=== PATIENT | female | born 1965 ===

== ENCOUNTER 2020-08-08 12:30 | Inpatient (IN) | payer OTHER ==
[~2020-08-08] VITALS: Ht 172.7 cm; Wt 78.9 kg
[2020-08-08] MEDS ORDERED: MORPHINE SULFAT30 MG PO (14:00)
[2020-08-08] MEDS ORDERED: PHENERGAN25 MG PO (14:00)
[2020-08-08] MEDS ORDERED: CELEBREX200MG PO (14:01)
[2020-08-08] MEDS ORDERED: ADVIL200 M1 PO (14:01)
[2020-08-08] MEDS ORDERED: GABAPENTIN400 MG PO (14:01)
[2020-08-08] MEDS ORDERED: ATARAX10 MG PO (14:02)
[2020-08-08] MEDS ORDERED: CLONAZEPAM2 M1 PO (14:02)
[2020-08-08] MEDS ORDERED: LORAZEPAM2 MG PO (14:02)
[2020-08-13] MEDS ORDERED: MEDROLPACK PO (09:55)
[2020-08-13] MEDS ORDERED: AMOX-CLAV 875-1 EAC1 PO (09:55)
[2020-08-13] MEDS ORDERED: COLACE100 MG PO (09:55)
[2020-08-13] MEDS ORDERED: NEURONTIN800 MG PO (09:55)
[2020-08-13] MEDS ORDERED: DIAZEPAM10 MG PO (09:55)
[2020-08-13] MEDS ORDERED: PERCOCET 5-3251 EACH PO (09:55)
[2020-08-14] MEDS ORDERED: ZOFRAN8 MG PO (07:54)
== END 2020-08-14 18:51 | DRG 517 ==
LOC: PED 08-13 04:39 → O/R 08-13 04:39 → SURG 08-13 12:30 → PED 08-13 13:12 → SURG 08-13 19:45 → PED 08-14 18:51
PROVIDERS: ADMIT Orthopaedic Surgery Orthopaedic Surgery of the Spine; ATTEND Orthopaedic Surgery Orthopaedic Surgery of the Spine
PROC: 01NR0ZZ Release Sacral Nerve, Open Approach (ICD-10-PCS; 2020-08-13)
PROC: 01NB0ZZ Release Lumbar Nerve, Open Approach (ICD-10-PCS; principal; 2020-08-13 19:45)
DX: M54.17 Radiculopathy, lumbosacral region (principal); M48.07 Spinal stenosis, lumbosacral region